=== PATIENT | female | born 1935 | race Caucasian/White ===

== ENCOUNTER 2019-04-04 15:29 | Inpatient (IN) | payer MEDICARE ==
[~2019-04-04 15:29] MED LIST: AMLO5TAB6 PO; ASPI81TA85 PO; ATOR1TAB21 PO; BREO1INH INH; DIPH25CA PO; FEBU40TA PO; FURO40TA2 PO; GLIP10TA18 PO; LISI-538 PO; MAG-400T7 PO; METF750T PO; METO1TAB32 PO; NON-325T5 PO; OXYC10TA12 PO; PANT20TA2 PO; PARO10TA3 PO; POTA1TAB14 PO; PROAAER10 INH; SYNT100T PO; TIOT18INH INH; TRAD5TAB PO
[2019-04-04 17:10] VITALS: BP 119/55
--- NOTE | 2019-04-04 17:29 | HPEPDOC ---
[facility] Medical History & Physical Date of Admission Apr 04, 2019 Date of Service: Apr 04, 2019 History and Physical CHIEF COMPLAINT: Abdominal pain HISTORY OF PRESENT ILLNESS: Patient is a 83-year-old female with past medical history of left atrophic kidney and nephrostomy tube to her right kidney, COPD, pulmonary hypertension, DM, hypertension, hypothyroidism is transferred from [facility] for DOMENICO. Of note, patient was admitted here in December for DOMENICO and complicated course shock requiring pressor support. She also had renal failure in October of this year requiring HD and received the R. nephrostomy tube at that time and was supposed to have it removed one week ago but did not due to being ill. She presented to [facility] this time with nausea/abdominal discomfort and reported URI symptoms along with loose stool last week. BUN/Cr noted to be at 58/3.65 with baseline Cr normal. Nephrostomy tube reportedly appeared to be functioning with urine still flowing, CT scan there did not note for any significant abnormalities. PAST MEDICAL HISTORY: Refer to [facility] PAST SURGICAL HISTORY: R. sided percutaneous nephrostomy tube placement Shoulder surgery SOCIAL HISTORY: Denies tobacco, alcohol or illicit drug use. FAMILY HISTORY: COPD and CAD ALLERGIES: Please see below. REVIEW OF SYSTEMS: 10 point review of system negative except as stated in [facility] HOME MEDICATIONS: Please see below. PHYSICAL EXAMINATION: General: No acute distress, Alert Eyes: Normal sclera, EOMI, MICHAEL HENT: Atraumatic, neck supple, moist mucous membranes Cardiovascular: Normal rate, normal rhythm. No murmurs appreciated. Pulmonary: Clear to auscultation b/l, no wheezing GI: Soft, nontender, nondistended Skin: Warm and dry Neuro: CN grossly intact. No focal deficits. Strengths equal b/l. Psych: oriented x 3 LABORATORY DATA: See below. MICROBIOLOGY: Please see below. ASSESSMENT AND PLAN: 1. DOMENICO - Suspecting pre-renal due to vomiting/loose stools as nephrostomy tube appeared to be functioning. - Patient has atropic L. kidney and nephrostomy tube to the R. - Has had DOMENICO several times this year and had HD in October. - Consult nephrology. - Gentle IVF support. If not improving, will have urology assess nephrostomy tube. 2. COPD - PRN nebs. - not in exacerbation. 3. HTN - Resume home meds. 4. Hypothyroidism - Resume Synthroid. 5. DM - Accuchecks. Insulin sliding scale coverage. - Hold home metformin. Takes 5 units Lantus qHS per son, will monitor BS. 6. AAA - 4cm on recent admission. - To follow with vascular outpatient. DVT ppx: HSQ and SCD Code status: Full code Home Medications Scheduled Acetaminophen (Acetaminophen) 325 Mg Tablet, 325 MG PO ONCE Amlodipine Besylate (Amlodipine Besylate) 5 Mg Tablet, 5 MG PO DAILY Aspirin (Aspir 81) 81 Mg Tablet.dr, 81 MG PO DAILY Atorvastatin Calcium (Atorvastatin Calcium) 20 Mg Tablet, 20 MG PO DAILY Febuxostat (Uloric) 40 Mg Tablet, 40 MG PO DAILY Fluticasone/Vilanterol (Breo Ellipta 100-25 Mcg INH) 1 Each Blst.w.dev, 1 PUFF INH DAILY Furosemide (Furosemide) 40 Mg Tablet, 40 MG PO DAILY Glipizide (Glipizide ER) 10 Mg Tab.er.24, 10 MG PO DAILY Levothyroxine Sodium (Synthroid) 100 Mcg Tablet, 100 MCG PO DAILY Linagliptin (Tradjenta) 5 Mg Tablet, 5 MG PO DAILY Lisinopril (Lisinopril) 20 Mg Tablet, 20 MG PO DAILY Magnesium Oxide (Magnesium Oxide) 400 Mg Tablet, 400 MG PO BID Metformin HCl (Metformin HCl ER) 750 Mg Tab.er.24h, 750 MG PO QPM TAKE WITH EVENING MEAL Metoprolol Succinate (Metoprolol Succinate) 25 Mg Tab.er.24h, 12.5 MG PO DAILY Pantoprazole Sodium (Pantoprazole Sodium) 20 Mg Tablet.dr, 20 MG PO BID Paroxetine HCl (Paroxetine) 10 Mg Tablet, 10 MG PO DAILY Potassium Chloride (Potassium Chloride) 20 Meq Tablet.er, 40 MEQ PO DAILY Tiotropium Edmond Monohydrate (Spiriva) 18 Mcg Cap.w.dev, 1 INHALATION INH DAILY Scheduled PRN Albuterol Sulfate (Proair Hfa) 8.5 Gm Hfa.aer.ad, 2 PUFF INH Q4-6 PRN for SHORTNESS OF BREATH Diphenhydramine HCl (Diphenhydramine HCl) 25 Mg Capsule, 25 MG PO Q4H PRN for ALLERGY SYMPTOMS Oxycodone HCl (Oxycodone HCl) 10 Mg Tablet, 10 MG PO Q6H PRN for PAIN Allergies Coded Allergies: Penicillins (Unverified Allergy, Unknown, 02/12/19) budesonide (Unverified Adverse Reaction, Intermediate, 02/12/19) NOTES AT PHARMACY STATE PATIENT HAD BAD SINUS REACTION AFTER USING formoterol (Unverified Adverse Reaction, Intermediate, 02/12/19) NOTES AT PHARMACY STATE PATIENT HAD BAD SINUS REACTION AFTER USING A-FIB/CHADSVASC A-FIB History Current/History of A-Fib/PAF?: No DIONISIO LYNN MD Apr 04, 2019 17:29
[2019-04-04] MEDS ORDERED: DEXTROSE 50% 50 ML SYRINGE IV PRN (17:45)
[2019-04-04] MEDS ORDERED: GLUCAGON FOR INJ 1 MG VIAL (J1610) SC PRN (17:45)
[2019-04-04] MEDS ORDERED: GLUCOSE 4 GM CHEW TABLET PO PRN (17:45)
[2019-04-04] MEDS: NS 1,000 ML IV SCH (18:00)
[2019-04-04] MEDS ORDERED: METO1TAB32 PO (18:09)
[2019-04-04] MEDS ORDERED: ALLO100T PO (18:09)
[2019-04-04 18:12] LABS: HEMATOCRIT 29.8 % (36.0-47.0); HEMOGLOBIN 10.1 g/dl (12.0-15.5); MEAN CORPUSCULAR HEMOGLOBIN 32.2 pg (27.0-33.0); MEAN CORPUSCULAR HGB CONC 33.9 g/dl (32.0-36.5); MEAN CORPUSCULAR VOLUME 94.9 fl (80.0-96.0); PLATELET COUNT, AUTOMATED 218 10^3/uL (150-450); RED BLOOD COUNT 3.14 10^6/uL (4.00-5.40); WHITE BLOOD COUNT 10.9 10^3/uL (4.0-10.0)
[2019-04-04] MEDS ORDERED: IPRATROPIUM 0.5MG/ALBUTEROL 2.5MG INH SOL UD 3ML (DUONEB)(J7620) NEB PRN (18:15)
[2019-04-04] MEDS ORDERED: ACETAMINOPHEN TAB 650MG DOSE (2X325MG) PO PRN (18:45)
[2019-04-04] MEDS ORDERED: ALBUTEROL 90 MCG/ACT 8GM HFA INHALER INH PRN (18:45)
[2019-04-04 18:50] LABS: ALBUMIN 2.8 GM/DL (3.2-5.2); BILIRUBIN,TOTAL 0.3 MG/DL (0.2-1.0); CALCIUM LEVEL 7.8 MG/DL (8.8-10.2); CREATININE FOR GFR 3.09 MG/DL (0.55-1.30); GLOMERULAR FILTRATION RATE 15.4 (>32); POTASSIUM SERUM 3.5 MEQ/L (3.5-5.1); TOTAL PROTEIN 6.2 GM/DL (6.4-8.2)
[2019-04-04] MEDS ORDERED: NORCO, ANEXSIA 5/325MG TABLET (HYDROcodone/ACETAMINOPHEN) PO ONE (20:15)
[2019-04-04 20:24] LABS: HEMOGLOBIN A1c 6.2 %
[2019-04-04] MEDS: HumaLOG INSULIN (NovoLOG) PER UNIT SC SCH (21:00)
[2019-04-04] MEDS: HEPARIN SOD (PORCINE) 5000 UNITS/ML VIAL SC SCH (21:51)
[2019-04-04] MEDS: PANTOPRAZOLE 20 MG TAB PO SCH (21:52)
[2019-04-04] MEDS: MAGNESIUM OXIDE 400 MG TAB (MAG-OX) PO SCH (21:52)
[2019-04-04 22:00] VITALS: BP 124/74
[2019-04-05 02:00] VITALS: BP 135/68
[2019-04-05 05:56] LABS: HEMATOCRIT 29.7 % (36.0-47.0); HEMOGLOBIN 9.9 g/dl (12.0-15.5); MEAN CORPUSCULAR HEMOGLOBIN 30.7 pg (27.0-33.0); MEAN CORPUSCULAR HGB CONC 33.3 g/dl (32.0-36.5); PLATELET COUNT, AUTOMATED 256 10^3/uL (150-450); RED BLOOD COUNT 3.23 10^6/uL (4.00-5.40); WHITE BLOOD COUNT 8.8 10^3/uL (4.0-10.0)
[2019-04-05 06:00] VITALS: BP 122/62
[2019-04-05 06:13] LABS: CREATININE FOR GFR 2.43 MG/DL (0.55-1.30); GLOMERULAR FILTRATION RATE 20.3 (>32); POTASSIUM SERUM 3.8 MEQ/L (3.5-5.1)
[2019-04-05] MEDS: HEPARIN SOD (PORCINE) 5000 UNITS/ML VIAL SC SCH ×3 (06:22→21:11)
[2019-04-05] MEDS: NORCO, ANEXSIA 5/325MG TABLET (HYDROcodone/ACETAMINOPHEN) PO PRN ×3 (06:23→23:52)
[2019-04-05] MEDS: LEVOTHYROXINE 100MCG TABLET (0.1MG) PO SCH (06:23)
[2019-04-05] MEDS: HumaLOG INSULIN (NovoLOG) PER UNIT SC SCH ×4 (07:30→21:00)
[2019-04-05] MEDS: NS 1,000 ML IV SCH ×2 (07:41→19:47)
[2019-04-05] MEDS: TIOTROPIUM INHALER/CAPSULE (SPIRIVA) INH SCH (07:47)
[2019-04-05] MEDS: ALLOPURINOL 100 MG TAB PO SCH (08:58)
[2019-04-05] MEDS: ATORVASTATIN 20 MG TAB PO SCH (08:59)
[2019-04-05] MEDS: PANTOPRAZOLE 20 MG TAB PO SCH ×2 (08:59→21:11)
[2019-04-05] MEDS: amLODIPine 5 MG TAB PO SCH (08:59)
[2019-04-05] MEDS: ASPIRIN 81 MG ENTERIC TAB PO SCH (08:59)
[2019-04-05] MEDS: METOPROLOL SUCC *XL* 25MG TAB (TopROL *XL*) PO SCH (08:59)
[2019-04-05] MEDS: MAGNESIUM OXIDE 400 MG TAB (MAG-OX) PO SCH ×2 (08:59→21:11)
[2019-04-05 10:00] VITALS: BP 135/60
[2019-04-05] MEDS: MORPHINE 4 MG/ML 1ML VIAL/SYRINGE (J2270) IV PRN ×2 (10:09→13:36)
--- NOTE | 2019-04-05 13:49 | CR ---
DATE OF CONSULTATION: 04/05/2019 REQUESTING PHYSICIAN: Jason Block MD CONSULTING PHYSICIAN: Joseline Pena MD REASON FOR CONSULTATION: Management of acute kidney injury. CHIEF COMPLAINT: The patient presented to the hospital yesterday with abdominal pain. HISTORY OF PRESENT ILLNESS Bindu Pichardo is an 83-year-old female with past medical history of chronic kidney disease, stage II with a baseline creatinine of 0.9. She has atrophic left kidney and has a percutaneous nephrostomy tube in the right kidney. Multiple other comorbidities as mentioned below. She was transferred yesterday from [facility] because of acute renal failure. The patient presented at [facility] with nausea, abdominal pain, upper respiratory symptoms. Further evaluation in the ER showed that she had a creatinine of 3.6. Since she has only one functional kidney with a nephrostomy tube and a history of acute renal failure requiring hemodialysis back in October 2018, the patient was transferred from [place] to [facility] for further management of the acute renal failure. She was admitted under the hospitalist service yesterday. The patient was discussed by myself with the admitting physician. The decision was made to gently hydrate the patient. I saw and evaluated the patient today morning at the bedside. She is feeling better today. She was able to eat her breakfast and she reports that her abdominal pain is improving. Her renal function is also improving with the IV fluid hydration. PAST MEDICAL HISTORY Past medical history of her chronic kidney disease stage II, history of renal failure requiring dialysis six month ago in October 2018; solitary functioning right kidney with percutaneous nephrostomy, history of atrophic left kidney, chronic obstructive pulmonary disease (COPD), primary hypertension, diabetes mellitus type 2, hypertension, hypothyroidism. PAST SURGICAL HISTORY Status post right-sided percutaneous nephrostomy, history of shoulder surgery. ALLERGIES: She is allergic to PENICILLIN, LATEX, PEANUT OIL, RED DYE, BUDESONIDE. FAMILY HISTORY: No significant family history of end-stage renal disease requiring hemodialysis. SOCIAL HISTORY: There is no history smoking, illicit drug abuse, alcohol abuse. REVIEW OF SYSTEMS Constitutional: She denies any fevers or chills. Eyes: She denies any blurry vision, double vision. ENT: She reports that she is very hard of hearing. Cardiovascular: She denies any chest pain or palpitation. Respiratory: She denies any shortness of breath. GI: She did report abdominal pain when she presented to the hospital. She reports pain is getting better. Genitourinary: She denies any dysuria or hematuria. She has history of right-sided nephrostomy. Musculoskeletal: She denies any muscle weakness. Skin: She denies any rashes or ulcers. 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 Hematology/Oncological: She denies any easy bleeding or bruising. All other review of systems is negative. PHYSICAL EXAMINATION General: The patient is awake, alert, oriented times three, sitting up in the bed. Vital signs: Temperature is 97.4 degrees Fahrenheit, blood pressure 135/60, pulse is 95, respiratory rate of 20, saturating 96% on room air. Intake and output: Urine output recorded 350 mL yesterday, 455 mL so far today since overnight. Head and neck examination: Extraocular muscles intact. Pupils equally round and reactive to light. Mucous membranes are moist. Neck is supple. There is no JVD. Cardiovascular: S1, S2, regular rate. No edema of the bilateral lower extremities. Respiratory: Chest is clear to auscultation bilaterally. Bilateral equal air entry. No rales or rhonchi. Abdomen: Soft. Positive bowel sounds. Nontender. No organomegaly. Musculoskeletal: No clubbing or cyanosis. Pulses are 2+. 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 Power is 5/5 in all extremities. She is otherwise very hard of hearing. LAB REVIEW: CBC showed a WBC of 8.8, hemoglobin 9.9, platelets are 256. BMP on arrival showed sodium 130, potassium 3.5, chloride 101, bicarb 17, BUN 58, creatinine is 3, calcium 7.8, albumin 2.8. Repeat BMP done today morning showed sodium 135, potassium 3.8, chloride 107, bicarb 16, BUN 52, creatinine is 2.4, calcium is 8. HOME MEDICATIONS: The patient was taking Tylenol as needed (p.r.n.) at home. She was on allopurinol 100 mg daily, amlodipine 5 mg daily, aspirin 81 mg daily, Lipitor 20 mg daily, Breo Ellipta one puff once a day, Lasix 40 mg daily, glipizide 10 mg daily, levothyroxine 100 mcg by mouth daily, Tradjenta 5 mg by mouth daily, lisinopril 20 mg daily, magnesium oxide 400 mg by mouth twice a day, metformin 750 mg by mouth daily, metoprolol 25 mg daily, Protonix 20 mg by mouth twice a day, paroxetine 10 mg daily and potassium chloride 40 mEq by mouth twice a day, along with Spiriva daily. CURRENT INPATIENT MEDICATIONS: The patient's medications in the hospital include normal saline 75 mL an hour, Harper as needed, Tylenol as needed, albuterol nebulizations, allopurinol 100 mg daily, amlodipine 5 mg daily, aspirin 81 mg daily, Lipitor 20 mg daily, heparin subcutaneous, levothyroxine 100 mcg by mouth daily, magnesium oxide 400 mg by mouth twice a day, metoprolol XL 25 mg daily, Protonix 20 mg by mouth twice a day, Spiriva inhalation and morphine as needed. ASSESSMENT 83-year-old female with near-normal renal function. Baseline creatinine is 0.9, solitary functioning right kidney with percutaneous nephrostomy admitted this time with acute kidney injury superimposed on chronic kidney disease stage II and abdominal pain. PLAN 1. Acute renal failure superimposed on chronic kidney disease stage II. The patient came in with dehydration and volume depleted. She was also taking Lasix, lisinopril and metformin at home. She was started on gentle IV fluid hydration. Above-mentioned medications were stopped. Renal function is improving, creatinine is down to 2.4. Continue gentle IV fluid hydration for the next 24 hours as well. 2. History of hypertension. The patient is currently on home medications including amlodipine and metoprolol. Blood pressures are within the acceptable range. 3. Right-sided percutaneous nephrostomy status. Nephrostomy tube is working well. Urine in the bag is clear. 4. Diabetes mellitus type 2. Avoid use of metformin, acute renal failure. Okay to use a sulfonylureas or insulin sliding scale. 5. History of abdominal aortic aneurysm. Avoid use of hydralazine for blood pressure. Try to maintain blood pressure less than 140 systolic. Rest of the management is as per primary team. 6. Chronic gout secondary to chronic kidney disease. Continue current dose of allopurinol 100 mg by mouth daily. Thank you for involving me in the care of this patient. I shall be happy to follow the patient along with you tomorrow morning.
[2019-04-05 14:00] VITALS: BP 140/63
--- NOTE | 2019-04-05 16:13 | IPNPDOC ---
Date Seen The patient was seen on 04/05/19. Progress Note SUBJECTIVE: Patient reports pain this morning at multiple sites including her abdomen, R. hip, and back. Stated that she fell and had a hairline fracture and it has been hurting for the past 2 years however. Denies any other complaints. States that she has not had a bowel movement. Cr improving with IVF resuscitation. OBJECTIVE PHYSICAL EXAMINATION: VITAL SIGNS: Please see below. General: No acute distress, Alert, hard of hearing and some dementia Eyes: Normal sclera, EOMI, MICHAEL HENT: Atraumatic, neck supple, moist mucous membranes Cardiovascular: Normal rate, normal rhythm. No murmurs appreciated. Pulmonary: Clear to auscultation b/l, no wheezing GI: Soft, nondistended, generalized tenderness Skin: Warm and dry Neuro: CN grossly intact. No focal deficits. Strengths equal b/l. Psych: Has some dementia and does not answer all questions appropriately LABORATORY DATA, IMAGING STUDIES, MICROBIOLOGY: Please see below. ASSESSMENT AND PLAN: 1. DOMENICO on CKD II - Suspecting pre-renal due to vomiting/loose stools as nephrostomy tube appeared to be functioning. - Patient has atropic L. kidney and nephrostomy tube to the R. - Has had DOMENICO several times this year and had HD in October. - Nephrology following. - Gentle IVF support. 2. COPD - PRN nebs. - not in exacerbation. 3. HTN - Resume home meds hold nephrotoxic meds. 4. Hypothyroidism - Resume Synthroid. 5. DM - Accuchecks. Insulin sliding scale coverage. - Hold home metformin. Takes 5 units Lantus qHS per son, will monitor BS. 6. AAA - 4cm on recent admission. - To follow with vascular outpatient. DVT ppx: HSQ and SCD Code status: Full code VS, I&O, 24H, Fishbone Vital Signs/I&O Vital Signs Date Time Temp Pulse Resp B/P (MAP) Pulse Ox O2 Delivery O2 Flow Rate FiO2 04/05/19 14:00 96.5 95 20 140/63 (88) 98 I&O- Last 24 Hours up to 6 AM 04/05/19 06:00 Intake Total 1025 ml Output Total 805 ml Balance 220 ml Laboratory Data 24H LABS Laboratory Tests 2 04/04/19 18:01: Nucleated Red Blood Cells % (auto) 0.0, Anion Gap 12, Glomerular Filtration Rate 15.4L, Blood Urea Nitrogen 58H, Creatinine 3.09H, Sodium Level 130L, Potassium Level 3.5, Chloride Level 101, Carbon Dioxide Level 17L, Calcium Level 7.8L, Aspartate Amino Transf (AST/SGOT) 14, Alanine Aminotransferase (ALT/SGPT) 12, Alkaline Phosphatase 105, Total Bilirubin 0.3, Total Protein 6.2L, Albumin 2.8L, Albumin/Globulin Ratio 0.82L 04/04/19 18:02: Lactic Acid Level 0.6 04/04/19 19:11: Bedside Glucose (Misc Panel) 40L 04/04/19 19:36: Bedside Glucose (Misc Panel) 86 04/04/19 19:58: Estimated Mean Plasma Glucose 131H, Hemoglobin A1c 6.2 04/04/19 20:54: Bedside Glucose (Misc Panel) 109 04/05/19 05:28: Nucleated Red Blood Cells % (auto) 0.0, Anion Gap 12, Glomerular Filtration Rate 20.3L, Blood Urea Nitrogen 52H, Creatinine 2.43H, Sodium Level 135L, Potassium Level 3.8, Chloride Level 107, Carbon Dioxide Level 16L, Calcium Level 8.0L 04/05/19 11:34: Bedside Glucose (Misc Panel) 159H CBC/BMP Laboratory Tests 04/04/19 18:01 Red Blood Count 3.14 L, Mean Corpuscular Volume 94.9, Mean Corpuscular Hemog lobin 32.2, Mean Corpuscular Hemoglobin Concent 33.9, Red Cell Distribution Width 16.3 H, Calcium Level 7.8 L, Aspartate Amino Transf (AST/SGOT) 14, Alanine Aminotransferase (ALT/SGPT) 12, Alkaline Phosphatase 105, Total Bilirubin 0.3, Total Protein 6.2 L, Albumin 2.8 L 04/05/19 05:28 Red Blood Count 3.23 L, Mean Corpuscular Volume 92.0, Mean Corpuscular Hemoglobin 30.7, Mean Corpuscular Hemoglobin Concent 33.3, Red Cell Distribution Width 16.0 H, Calcium Level 8.0 L DIONISIO LYNN MD Apr 05, 2019 16:13
[2019-04-05 18:00] VITALS: BP 148/63
[2019-04-05 22:00] VITALS: BP 158/67
[2019-04-06 06:00] VITALS: BP 154/98
[2019-04-06] MEDS: LEVOTHYROXINE 100MCG TABLET (0.1MG) PO SCH (06:29)
[2019-04-06] MEDS: HEPARIN SOD (PORCINE) 5000 UNITS/ML VIAL SC SCH ×3 (06:29→21:03)
[2019-04-06 06:44] LABS: HEMATOCRIT 26.9 % (36.0-47.0); MEAN CORPUSCULAR HEMOGLOBIN 31.1 pg (27.0-33.0); MEAN CORPUSCULAR HGB CONC 33.5 g/dl (32.0-36.5); MEAN CORPUSCULAR VOLUME 93.1 fl (80.0-96.0); PLATELET COUNT, AUTOMATED 224 10^3/uL (150-450); RED BLOOD COUNT 2.89 10^6/uL (4.00-5.40); WHITE BLOOD COUNT 5.3 10^3/uL (4.0-10.0)
[2019-04-06 07:00] LABS: CALCIUM LEVEL 7.9 MG/DL (8.8-10.2); CREATININE FOR GFR 1.21 MG/DL (0.55-1.30); GLOMERULAR FILTRATION RATE 45.5 (>32); POTASSIUM SERUM 3.7 MEQ/L (3.5-5.1)
[2019-04-06] MEDS: TIOTROPIUM INHALER/CAPSULE (SPIRIVA) INH SCH (08:17)
[2019-04-06] MEDS: ATORVASTATIN 20 MG TAB PO SCH (08:33)
[2019-04-06] MEDS: PANTOPRAZOLE 20 MG TAB PO SCH ×2 (08:33→20:14)
[2019-04-06] MEDS: MAGNESIUM OXIDE 400 MG TAB (MAG-OX) PO SCH ×2 (08:33→20:14)
[2019-04-06] MEDS: NORCO, ANEXSIA 5/325MG TABLET (HYDROcodone/ACETAMINOPHEN) PO PRN ×2 (08:33→16:34)
[2019-04-06] MEDS: amLODIPine 5 MG TAB PO SCH (08:34)
[2019-04-06] MEDS: ALLOPURINOL 100 MG TAB PO SCH (08:34)
[2019-04-06] MEDS: METOPROLOL SUCC *XL* 25MG TAB (TopROL *XL*) PO SCH (08:34)
[2019-04-06] MEDS: NS 1,000 ML IV SCH ×2 (08:34→20:15)
[2019-04-06] MEDS: HumaLOG INSULIN (NovoLOG) PER UNIT SC SCH ×4 (08:35→20:51)
[2019-04-06] MEDS: ASPIRIN 81 MG ENTERIC TAB PO SCH (08:36)
[2019-04-06] MEDS: MOM 30ML SUSPENSION UDC PO SCH ×2 (09:00→20:15)
[2019-04-06 10:00] VITALS: BP 140/62
--- NOTE | 2019-04-06 12:18 | IPNPDOC ---
Date Seen The patient was seen on 04/06/19. Progress Note SUBJECTIVE: Patient seem comfortable this morning and is more responsive. States that her pains are better. Although has not had a bowel movement yet. Cr continues to trend down. OBJECTIVE PHYSICAL EXAMINATION: VITAL SIGNS: Please see below. General: No acute distress, Alert, hard of hearing and some dementia Eyes: Normal sclera, EOMI, MICHAEL HENT: Atraumatic, neck supple, moist mucous membranes Cardiovascular: Normal rate, normal rhythm. No murmurs appreciated. Pulmonary: Clear to auscultation b/l, no wheezing GI: Soft, nondistended, generalized tenderness Skin: Warm and dry Neuro: CN grossly intact. No focal deficits. Strengths equal b/l. Psych: Has some dementia and does not answer all questions appropriately LABORATORY DATA, IMAGING STUDIES, MICROBIOLOGY: Please see below. ASSESSMENT AND PLAN: 1. DOMENICO on CKD II - Improving. - Suspecting pre-renal due to vomiting/loose stools as nephrostomy tube appeared to be functioning. - Patient has atropic L. kidney and nephrostomy tube to the R. - Has had DOMENICO several times this year and had HD in October. - Nephrology following. 2. COPD - PRN nebs. - not in exacerbation. 3. HTN - Resume home meds hold nephrotoxic meds. 4. Hypothyroidism - Resume Synthroid. 5. DM - Accuchecks. Insulin sliding scale coverage. - Hold home metformin. Takes 5 units Lantus qHS per son, will monitor BS. 6. AAA - 4cm on recent admission. - To follow with vascular outpatient. 7. Diffuse pain/abdominal pain - suspect constipation. CT with no significant findings at [facility]. - Has not had a bowel movement in 6 days. Start on bowel regimen. DVT ppx: HSQ and SCD Code status: Full code VS, I&O, 24H, Fishbone Vital Signs/I&O Vital Signs Date Time Temp Pulse Resp B/P (MAP) Pulse Ox O2 Delivery O2 Flow Rate FiO2 04/06/19 10:00 97.2 98 20 140/62 (88) 99 I&O- Last 24 Hours up to 6 AM 04/06/19 06:00 Intake Total 2309 ml Output Total 800 ml Balance 1509 ml Laboratory Data 24H LABS Laboratory Tests 2 04/05/19 17:54: Bedside Glucose (Misc Panel) 101 04/05/19 20:59: Bedside Glucose (Misc Panel) 119H 04/06/19 05:53: Nucleated Red Blood Cells % (auto) 0.0, Anion Gap 8, Glomerular Filtration Rate 45.5, Blood Urea Nitrogen 34H, Creatinine 1.21#, Sodium Level 140, Potassium Level 3.7, Chloride Level 114H, Carbon Dioxide Level 18L, Calcium Level 7.9L 04/06/19 11:44: Bedside Glucose (Misc Panel) 165H CBC/BMP Laboratory Tests 04/06/19 05:53 Red Blood Count 2.89 L, Mean Corpuscular Volume 93.1, Mean Corpuscular Hemoglobin 31.1, Mean Corpuscular Hemoglobin Concent 33.5, Red Cell Distribution Width 15.9 H, Calcium Level 7.9 L DIONISIO LYNN MD Apr 06, 2019 12:18
[2019-04-06] MEDS: DOCUSATE SODIUM 100 MG CAP PO SCH ×2 (13:00→20:14)
[2019-04-06 14:00] VITALS: BP 120/50
[2019-04-06 18:00] VITALS: BP 157/74
[2019-04-06 19:36] LABS: PERCENT SATURATION 34.8 % (13.2-45.0)
[2019-04-06 22:00] VITALS: BP 116/71
[2019-04-07] MEDS: NORCO, ANEXSIA 5/325MG TABLET (HYDROcodone/ACETAMINOPHEN) PO PRN ×2 (01:01→09:03)
[2019-04-07 02:00] VITALS: BP 127/77
[2019-04-07] MEDS: HEPARIN SOD (PORCINE) 5000 UNITS/ML VIAL SC SCH (05:58)
[2019-04-07] MEDS: LEVOTHYROXINE 100MCG TABLET (0.1MG) PO SCH (05:58)
[2019-04-07 06:00] VITALS: BP 137/86
[2019-04-07 06:35] LABS: HEMATOCRIT 27.3 % (36.0-47.0); HEMOGLOBIN 9.3 g/dl (12.0-15.5); MEAN CORPUSCULAR HEMOGLOBIN 32.3 pg (27.0-33.0); MEAN CORPUSCULAR HGB CONC 34.1 g/dl (32.0-36.5); MEAN CORPUSCULAR VOLUME 94.8 fl (80.0-96.0); PLATELET COUNT, AUTOMATED 220 10^3/uL (150-450); RED BLOOD COUNT 2.88 10^6/uL (4.00-5.40); WHITE BLOOD COUNT 5.1 10^3/uL (4.0-10.0)
[2019-04-07 07:07] LABS: BLOOD UREA NITROGEN 17 MG/DL (7-18); CARBON DIOXIDE LEVEL 19 MEQ/L (21-32); CHLORIDE LEVEL 115 MEQ/L (98-107); CREATININE FOR GFR 0.87 MG/DL (0.55-1.30); GLOMERULAR FILTRATION RATE > 60.0 (>32); GLUCOSE, FASTING 96 MG/DL (70-100); POTASSIUM SERUM 3.6 MEQ/L (3.5-5.1); SODIUM LEVEL 142 MEQ/L (136-145)
[2019-04-07] MEDS: HumaLOG INSULIN (NovoLOG) PER UNIT SC SCH ×2 (07:27→11:48)
[2019-04-07] MEDS: TIOTROPIUM INHALER/CAPSULE (SPIRIVA) INH SCH (08:15)
[2019-04-07] MEDS: NS 1,000 ML IV SCH (09:01)
[2019-04-07] MEDS: MOM 30ML SUSPENSION UDC PO SCH (09:02)
[2019-04-07] MEDS: ATORVASTATIN 20 MG TAB PO SCH (09:02)
[2019-04-07] MEDS: DOCUSATE SODIUM 100 MG CAP PO SCH (09:02)
[2019-04-07] MEDS: PANTOPRAZOLE 20 MG TAB PO SCH (09:02)
[2019-04-07] MEDS: ALLOPURINOL 100 MG TAB PO SCH (09:02)
[2019-04-07] MEDS: MAGNESIUM OXIDE 400 MG TAB (MAG-OX) PO SCH (09:02)
[2019-04-07] MEDS: ASPIRIN 81 MG ENTERIC TAB PO SCH (09:02)
[2019-04-07 09:07] VITALS: BP 124/70
[2019-04-07] MEDS: METOPROLOL SUCC *XL* 25MG TAB (TopROL *XL*) PO SCH (09:07)
[2019-04-07] MEDS: amLODIPine 5 MG TAB PO SCH (09:07)
[2019-04-07 10:00] VITALS: BP 166/77
--- NOTE | 2019-04-07 11:57 | DS.PDOC ---
Discharge Summary General Date of Admission Apr 04, 2019 at 17:15 Date of Discharge 04/07/19 Discharge Summary PROCEDURES PERFORMED DURING STAY: [None]. ADMITTING DIAGNOSES: 1. DOMENICO 2. COPD 3. HTN 4. DM 5. AAA 6. Abdominal pain DISCHARGE DIAGNOSES: 1. DOMENICO 2. COPD 3. HTN 4. DM 5. AAA 6. Abdominal pain COMPLICATIONS/CHIEF COMPLAINT: Acute Kidney Injury. HISTORY OF PRESENT ILLNESS: "Patient is a 83-year-old female with past medical history of left atrophic kidney and nephrostomy tube to her right kidney, COPD, pulmonary hypertension, DM, hypertension, hypothyroidism is transferred from [facility] for DOMENICO. Of note, patient was admitted here in December for DOMENICO and complicated course shock requiring pressor support. She also had renal failure in October of this year requiring HD and received the R. nephrostomy tube at that time and was supposed to have it removed one week ago but did not due to being ill. She presented to [facility] this time with nausea/abdominal discomfort and reported U RI symptoms along with loose stool last week. BUN/Cr noted to be at 58/3.65 with baseline Cr normal. Nephrostomy tube reportedly appeared to be functioning with urine still flowing, CT scan there did not note for any significant abnormalities. " HOSPITAL COURSE: Patient was given gentle IVF with quick resolution of DOMENICO and kidney functions had returned to normal. Also noted to not have bowel movements for several days complaining of severe abdominal pain. Was started on stool softener and had a small bowel movement yesterday, today denies any complaints. Stated that she feels well and requested to go home, very tearful saying she cannot rest and her HR is high because she is in distress being in the hospital. HR had now return to normal with no fever or leukocytosis, suggesting any evidence of infection. Will discharge patient to f/u with PMD. Recommend continuing with stool softener. DISCHARGE MEDICATIONS: Please see below. ALLERGIES: Please see below. PHYSICAL EXAMINATION ON DISCHARGE: VITAL SIGNS: Please see below. General: No acute distress, Alert Eyes: Normal sclera, EOMI, MICHAEL HENT: Atraumatic, neck supple, moist mucous membranes Cardiovascular: Normal rate, normal rhythm. Pulmonary: Clear to auscultation b/l, no wheezing GI: Soft, nontender, nondistended Skin: Warm and dry Neuro: CN grossly intact. No focal deficits. Strengths equal b/l. LABORATORY DATA: Please see below. IMAGING: CXR- report pending ACTIVITY: [As tolerated]. DIET: 2G sodium diet DISCHARGE PLAN: c/w stool softener colace f/u PMD within 1 week DISPOSITION: Home. DISCHARGE INSTRUCTIONS: c/w stool softener colace f/u PMD within 1 week ITEMS TO FOLLOWUP ON ON OUTPATIENT: 1. CXR final report, no significant infiltrate per my read. (no evidence of PNA or infection, would not need to have any treatment) DISCHARGE CONDITION: [Stable]. TIME SPENT ON DISCHARGE: 33 minutes. Vital Signs/I&Os Vital Signs Date Time Temp Pulse Resp B/P (MAP) Pulse Ox O2 Delivery O2 Flow Rate FiO2 04/07/19 10:00 97.6 99 18 166/77 (106) 97 I&O- Last 24 Hours up to 6 AM 04/07/19 06:00 Intake Total 1641 ml Output Total 1500 ml Balance 141 ml Laboratory Data Labs 24H Laboratory Tests 2 04/06/19 16:46: Bedside Glucose (Misc Panel) 128H 04/06/19 20:39: Bedside Glucose (Misc Panel) 113H 04/07/19 06:08: Nucleated Red Blood Cells % (auto) 0.4H, Anion Gap 8, Glomerular Filtration Rate > 60.0, Blood Urea Nitrogen 17, Creatinine 0.87, Sodium Level 142, Potassium Level 3.6, Chloride Level 115H, Carbon Dioxide Level 19L, Calcium Level 8.0L 04/07/19 11:39: Bedside Glucose (Misc Panel) 170H CBC/BMP Laboratory Tests 04/07/19 06:08 Red Blood Count 2.88 L, Mean Corpuscular Volume 94.8, Mean Corpuscular Hemoglobin 32.3, Mean Corpuscular Hemoglobin Concent 34.1, Red Cell Distribution Width 15.9 H, Calcium Level 8.0 L FSBS Laboratory Tests Test 04/06/19 16:46 04/06/19 20:39 04/07/19 11:39 Range/Units Bedside Glucose (Misc Panel) 128 113 170 83-110 MG/DL Discharge Medications Scheduled Allopurinol (Allopurinol) 100 Mg Tablet, 100 MG PO DAILY, (Reported) Amlodipine Besylate (Amlodipine Besylate) 5 Mg Tablet, 5 MG PO DAILY, (Reported) Aspirin (Aspir 81) 81 Mg Tablet.dr, 81 MG PO DAILY, (Reported) Atorvastatin Calcium (Atorvastatin Calcium) 20 Mg Tablet, 20 MG PO DAILY, (Reported) Fluticasone/Vilanterol (Breo Ellipta 100-25 Mcg INH) 1 Each Blst.w.dev, 1 PUFF INH DAILY, (Reported) Furosemide (Furosemide) 40 Mg Tablet, 40 MG PO DAILY, (Reported) Glipizide (Glipizide ER) 10 Mg Tab.er.24, 10 MG PO DAILY, (Reported) Levothyroxine Sodium (Synthroid) 100 Mcg Tablet, 100 MCG PO DAILY, (Reported) Linagliptin (Tradjenta) 5 Mg Tablet, 5 MG PO DAILY, (Reported) Lisinopril (Lisinopril) 20 Mg Tablet, 20 MG PO DAILY, (Reported) Magnesium Oxide (Magnesium Oxide) 400 Mg Tablet, 400 MG PO BID, (Reported) Metformin HCl (Metformin HCl ER) 750 Mg Tab.er.24h, 750 MG PO QPM, (Reported) TAKE WITH EVENING MEAL Metoprolol Succinate (Metoprolol Succinate) 25 Mg Tab.er.24h, 25 MG PO DAILY, (Reported) Pantoprazole Sodium (Pantoprazole Sodium) 20 Mg Tablet.dr, 20 MG PO BID, (Reported) Paroxetine HCl (Paroxetine) 10 Mg Tablet, 10 MG PO DAILY, (Reported) Potassium Chloride (Potassium Chloride) 20 Meq Tablet.er, 40 MEQ PO BID, (R eported) LAST FILLED SEP 2018, UNABLE TO VERIFY IF PT IS STILL TAKING Tiotropium [place] Monohydrate (Spiriva) 18 Mcg Cap.w.dev, 1 INHALATION INH DAILY, (Reported) Scheduled PRN Acetaminophen (Acetaminophen) 325 Mg Tablet, 650 MG PO Q6H PRN for PAIN, (Reported) Albuterol Sulfate (Proair Hfa) 8.5 Gm Hfa.aer.ad, 2 PUFF INH Q4-6 PRN for SHORTNESS OF BREATH, (Reported) Diphenhydramine HCl (Diphenhydramine HCl) 25 Mg Capsule, 25 MG PO Q4H PRN for ALLERGY SYMPTOMS, (Reported) Allergies Coded Allergies: Penicillins (Unverified Allergy, Unknown, 02/12/19) latex (Verified Allergy, Unknown, 04/04/19) peanut oil (Verified Allergy, Unknown, 04/04/19) red dye (Verified Allergy, Unknown, 04/04/19) budesonide (Unverified Adverse Reaction, Intermediate, 02/12/19) NOTES AT PHARMACY STATE PATIENT HAD BAD SINUS REACTION AFTER USING formoterol (Unverified Adverse Reaction, Intermediate, 02/12/19) NOTES AT PHARMACY STATE PATIENT HAD BAD SINUS REACTION AFTER USING DIONISIO LYNN MD Apr 07, 2019 11:57
[2019-04-07] MEDS ORDERED: COLA100C5 PO (12:04)
--- NOTE | 2019-04-07 14:03 | IPN ---
DATE: 04/06/2019 Mrs. Pichardo is seen this morning on her bedside. She is sitting at the edge of bed eating her lunch. She denies any nausea, vomiting, dyspnea or chest pain. PHYSICAL EXAMINATION: Temperature 96 degrees Fahrenheit, heart rate 100 per minute and respiratory rate 16 per minute. Blood pressure 120/50 mmHg and oxygen saturation 98%. Head is atraumatic. Neck is supple and without JVD or thyroid enlargement. Heart: Sounds are regular and tachycardiac. Lungs: Clear to auscultation. Abdomen: Soft and nontender. Bowel sounds are normal. Extremities have no cyanosis or clubbing. Neurologically she is awake and without a focal deficit. Today's labs show WBC count 5.3, hemoglobin 9.0 and hematocrit 26.9. Platelets 224. Sodium 140, potassium 3.7, CO2 18, BUN 34 and creatinine 1.21. PROBLEMS: 1. Acute renal failure. Kidney function is improving nicely and the patient has no uremic symptoms. I would suggest to continue monitoring her renal function on a daily basis. 2. Metabolic acidosis. Acidosis is improving gradually as her kidney function is improving. Chemistry should be checked again tomorrow morning. 3. Anemia. Her anemia is gradually worsening. I will check her iron studies and continue to monitor. There is no emergent indication for a transfusion. 4. Right-sided percutaneous nephrostomy in a solitary kidney. The patient has a nephrostomy in her right side and it is draining clear urine. Continue to monitor closely. All in all the patient is improving from a renal standpoint and we will monitor her and follow her for one more day.
--- NOTE | 2019-04-07 14:04 | REP ---
Clinical: Chest pain. Dyspnea. Comparison: 01/17/2019. Findings: Mediastinum and cardiac silhouette are within normal limits and stable. Lung andrea demonstrate chronic changes including linear scarring at the bilateral bases. No focal consolidation, effusion, or pneumothorax. Skeletal structures demonstrate stable osteopenia and degenerative changes. Impression: Chronic stable changes. No acute cardiopulmonary process appreciated. Electronically Signed by Buzz Horne MD 04/07/2019 09:58 A
--- NOTE | 2019-04-07 15:12 | IPN ---
DATE: 04/07/2019 Mrs. Pichardo is seen this morning on her bedside. She is laying in her bed without any acute distress. She is receiving intravenous (IV) fluid at 75 per hour. She was admitted with acute renal failure and kidney function has been improving. Her oral intake is now adequate and she denies any nausea, vomiting, abdominal pain or diarrhea. She has no dyspnea or chest pain. PHYSICAL EXAMINATION: Temperature 97.6 degrees Fahrenheit, heart rate 99 per minute and respiratory rate 18 per minute. Blood pressure 166/77 mmHg and oxygen saturation 97% on room air. Head is atraumatic. Neck is supple and without jugular venous distention (JVD) or thyroid enlargement. Heart sounds are regular. Lungs with slightly diminished breath sounds. Abdomen soft and nontender and bowel sounds are normal. Extremities have no cyanosis or clubbing. Today's labs show WBC count 5.1, hemoglobin 9.3 and hematocrit 27.3. Sodium 142, potassium 3.6, CO2 19, BUN 17 and creatinine 0.87. Calcium level is 8.0. PROBLEMS: 1. Acute renal failure. Kidney function has improved back to baseline. I am going to stop her IV fluid, as her oral intake is now adequate. 2. Metabolic acidosis. Acidosis has also improved significantly, though not completely normal as yet. We anticipate that her acidosis will correct completely over next 24-48 hours. She is not receiving any sodium bicarbonate supplement. 3. Anemia. Her anemia is stable and iron studies are borderline. I would recommend that she should supplement in the long-term. DISPOSITION: From a renal standpoint, patient is doing well. I am signing off her case. Her IV fluid is being stopped.
== END 2019-04-07 13:43 | disposition home health service (06) | DRG 683 ==
LOC: M MSPAV 17:15
PROVIDERS: ADMIT Student in an Organized Health Care Education/Training Program; ATTEND Student in an Organized Health Care Education/Training Program
DX: N17.9 Acute kidney failure, unspecified (principal); E87.2 Acidosis; N26.1 Atrophy of kidney (terminal); J44.9 Chronic obstructive pulmonary disease, unspecified; I27.20 Pulmonary hypertension, unspecified; I12.9 Hypertensive chronic kidney disease with stage 1 through stage 4 chronic kidney disease, or unspecified chronic kidney disease; E11.22 Type 2 diabetes mellitus with diabetic chronic kidney disease; E03.9 Hypothyroidism, unspecified; N18.2 Chronic kidney disease, stage 2 (mild); R11.0 Nausea; I71.4 Abdominal aortic aneurysm, without rupture; M10.30 Gout due to renal impairment, unspecified site; Z93.6 Other artificial openings of urinary tract status; Z79.84 Long term (current) use of oral hypoglycemic drugs; Z79.82 Long term (current) use of aspirin; Z79.899 Other long term (current) drug therapy; Z88.0 Allergy status to penicillin; Z88.8 Allergy status to other drugs, medicaments and biological substances; Z91.040 Latex allergy status; Z91.010 Allergy to peanuts; Z91.048 Other nonmedicinal substance allergy status

== ENCOUNTER → 2019-04-15 | Outpatient (CLI) | payer MEDICARE ==
[~2019-04-15] MED LIST changes: +ALLO100T PO; +CIPROFLOXACIN 500 MG TAB As Ordered ONE; +COLA100C5 PO; +ISOVUE-300 61% 50ML VIAL (Q9967) As Ordered ONE; +LIDOCAINE 1% MDV 20ML VIAL As Ordered ONE
[2019-04-15 14:30] VITALS: BP 142/64
--- NOTE | 2019-04-16 07:31 | REP ---
IR Nephrostomy catheter exchangeNephrostogram and Ureterogram.Clinical Information: Ureteral stricturePhysician[s]: Dr. Cardozarocedure: The patient was advised of the benefits, risks, and alternatives of the procedure and informed consent was obtained.A time out was performed with verification of the patient's name, MRN, site of procedure, and type of procedure to be performed. The patient was positioned in the decubitus position on the angiographic table. The site was prepped and draped in the usual sterile fashion.Moderate sedation was not required. The physician spent time 30 minutes of continuous [id number] time with the patient.A rnp radiograph reveals a right sided nephrostomy catheter in expected location.An initial nephrostogram and ureterogram were performed through the preexisting catheter, confirming the catheter pigtail position within the renal pelvis.The catheter was cut and an Amplatz wire was passed into the renal collecting system. The pre-existing nephrostomy catheter was removed over the wire. A new 8.5 [place] pigtail nephrostomy catheter was advanced into the renal collecting system. A final nephrostogram and ureterogram were performed confirming positioning of the pigtail within the renal pelvis with mild hydronephrosis. Ureterogram demonstrates no hydroureter. The ureter is patent to the urinary bladder.The catheter was sutured and a sterile dressing applied. The catheter was placed to gravity drainage.The patient tolerated the procedure well and was returned to the PRU in stable condition.EBL: < 5 mL.Complications: NoneConclusion:1. Nephrostogram and ureterogram demonstrate ureter patent to bladder.2. Successful right sided nephrostomy catheter exchange. Patient to return in 8-12 weeks for routine exchange. If the patient would be a suitable candidate for capping trial and ureteral stenting, please refer to IR. Thank you for this referral Electronically Signed by Aleshia Langston MD 04/15/2019 04:27 P
== END ==
LOC: EDBD 03-29 14:00 → M RADPRO 13:03 → M IRPRO 13:03
PROVIDERS: ATTEND Nurse Practitioner Family
DX: N13.30 Unspecified hydronephrosis (principal)

== ENCOUNTER → 2019-07-08 | Outpatient (CLI) | payer MEDICARE ==
[~2019-07-08] MED LIST changes: -CIPROFLOXACIN 500 MG TAB As Ordered ONE; +CIPROFLOXACIN/D5W 400 MG/200 ML BAG (J0744) As Ordered ONE; -DIPH25CA PO; +DIPH25CA32 PO; -FEBU40TA PO; +FEBU40TA4 PO; -METF750T PO; +METF750T36 PO; +MIDAZOLAM INJ 2 MG/2 ML VIAL (J2250) As Ordered ONE; +fentaNYL 100 MCG/2 ML INJECTION (J3010) As Ordered ONE
--- NOTE | 2019-07-08 15:31 | IRHP ---
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 last nephrostomy capping trial, patient ended up in renal failure. No fevers no chills no pain. O/E vitals stable. right nephrostomy draining clear urine. breathing normal at rest. heart rate normal. History of Present Illness Chief Complaint The patient is a 83-year-old female admitted with a reason for visit of Rt Hyd ronephrosis *$14 Co-Pay*. PRE-PROCEDURE DIAGNOSIS: obstructive uropathy ASA Classification ASA Classification: III-Severe systemic dis. Mallampati Score: I NPO: Yes Problems with prior sedation: No Obstructive Sleep Apnea: No Plan moderate sedation Allergies Coded Allergies: Penicillins (Unverified Allergy, Unknown, 02/12/19) latex (Verified Allergy, Unknown, 04/04/19) peanut oil (Verified Allergy, Unknown, 04/04/19) red dye (Verified Allergy, Unknown, 04/04/19) budesonide (Unverified Adverse Reaction, Intermediate, 02/12/19) NOTES AT PHARMACY STATE PATIENT HAD BAD SINUS REACTION AFTER USING formoterol (Unverified Adverse Reaction, Intermediate, 02/12/19) NOTES AT PHARMACY STATE PATIENT HAD BAD SINUS REACTION AFTER USING Home Medications Scheduled Allopurinol (Allopurinol), 100 MG PO DAILY, (Reported) Amlodipine Besylate (Amlodipine Besylate), 5 MG PO DAILY, (Reported) Aspirin (Aspir 81), 81 MG PO DAILY, (Reported) Atorvastatin Calcium (Atorvastatin Calcium), 20 MG PO DAILY, (Reported) Docusate Sodium (Colace), 200 MG PO BID Fluticasone/Vilanterol (Breo Ellipta 100-25 Mcg INH), 1 PUFF INH DAILY, ( Reported) Furosemide (Furosemide), 40 MG PO DAILY, (Reported) Glipizide (Glipizide ER), 10 MG PO DAILY, (Reported) Levothyroxine Sodium (Synthroid), 100 MCG PO DAILY, (Reported) Linagliptin (Tradjenta), 5 MG PO DAILY, (Reported) Lisinopril (Lisinopril), 20 MG PO DAILY, (Reported) Magnesium Oxide (Magnesium Oxide), 400 MG PO BID, (Reported) Metformin HCl (Metformin HCl ER), 750 MG PO QPM, (Reported) Metoprolol Succinate (Metoprolol Succinate), 25 MG PO DAILY, (Reported) Pantoprazole Sodium (Pantoprazole Sodium), 20 MG PO BID, (Reported) Paroxetine HCl (Paroxetine), 10 MG PO DAILY, (Reported) Potassium Chloride (Potassium Chloride), 40 MEQ PO BID, (Reported) Tiotropium [place] Monohydrate (Spiriva), 1 INHALATION INH DAILY, (Reported) Scheduled PRN Acetaminophen (Acetaminophen), 650 MG PO Q6H PRN for PAIN, (Reported) Albuterol Sulfate (Proair Hfa), 2 PUFF INH Q4-6 PRN for SHORTNESS OF BREATH, (Reported) Diphenhydramine HCl (Diphenhydramine HCl), 25 MG PO Q4H PRN for ALLERGY SYMPTOMS, (Reported) VS, I&O, 24H, Fishbone Vital Signs/I&O Vital Signs Date Time Temp Pulse Resp B/P (MAP) Pulse Ox O2 Delivery O2 Flow Rate FiO2 07/08/19 15:22 89 20 97 07/08/19 14:50 2 07/08/19 13:38 97.8 SUKHDEV DAHL MD Jul 08, 2019 15:31
--- NOTE | 2019-07-08 15:40 | REP ---
IR Nephrostomy catheter exchange. IR Nephrostogram and ureterogram. Clinical information: Obstructive right uropathy. Last capping trial patient went into renal failure. Physician: Dr. Langston. Procedure: The patient was advised of the benefits, risks and alternatives of the procedure and informed consent was obtained. The time-out was performed with verification of the patient's name, MRN, site of procedure and type of procedure to be performed. The patient was positioned in the prone position on the angiographic table. The site was prepped and draped in the usual sterile fashion. Moderate sedation was performed by the physician including the presence of an independent trained observer who assisted in monitoring the patient's level of consciousness and physiologic status. Following the administration of Versed and Fentanyl, the physician spent 30 minutes of continuous face to face time with the patient. A staff air defense officer radiograph reveals a right-sided nephrostomy catheter in expected location. An initial nephrostogram and ureterogram was performed through the preexisting catheter confirming pigtail positioned in the renal collecting system. Lidocaine was injected around the catheter exit site. The catheter and sutures were cut, an Amplatz wire was passed into the renal collecting system. The preexisting nephrostomy catheter was removed over the wire. A new 8 -Irish nephrostomy catheter was advanced in the renal collecting system. A final nephrostogram and ureterogram was performed confirming position of the pigtail in the renal pelvis with mild hydronephrosis. Ureterogram demonstrates the ureter is patent to the bladder. The catheter was secured in position with 2-0 Prolene and a sterile dressing was applied. The catheter was placed gravity drainage. The patient tolerated the procedure well and was returned to the P R U in stable condition. EBL: Less than 5 ml. Complications: None. Conclusion: 1. Nephrostogram and ureterogram demonstrate mild hydronephrosis. Ureter appears patent to the bladder. 2. Successful right nephrostomy catheter exchange. Patient to return in 8-12 weeks for routine catheter exchange. Thank you this referral. Electronically Signed by Aleshia Langston MD 07/08/2019 03:38 P
[2019-07-08 15:58] VITALS: BP 171/81
== END ==
LOC: M IRPRO 13:20
PROVIDERS: ATTEND Radiology Diagnostic Radiology
DX: N13.9 Obstructive and reflux uropathy, unspecified (principal); Z79.899 Other long term (current) drug therapy; Z79.82 Long term (current) use of aspirin
CPT/HCPCS: 50435; 99152; 99153; C1729; C1769; C1887; J0744; J2250; J3010; Q9967

== ENCOUNTER → 2019-10-03 | Outpatient (CLI) | payer MEDICARE ==
[~2019-10-03] MED LIST changes: +CIPROFLOXACIN 500 MG TAB As Ordered ONE; -CIPROFLOXACIN/D5W 400 MG/200 ML BAG (J0744) As Ordered ONE; -MIDAZOLAM INJ 2 MG/2 ML VIAL (J2250) As Ordered ONE; -fentaNYL 100 MCG/2 ML INJECTION (J3010) As Ordered ONE
[2019-10-03] MEDS: CIPROFLOXACIN 250 MG TAB PO ONE (15:39)
--- NOTE | 2019-10-03 16:33 | POST-OPPD ---
Postoperative Procedure Note Date Of Procedure: Oct 03, 2019 Time Of Procedure: 16:32 PREOPERATIVE DIAGNOSIS: ureteral obstruction POSTOPERATIVE DIAGNOSIS: same FINDINGS: same PROCEDURE: right side neph exchanged SURGEON: noble ANESTHESIA: local ESTIMATED BLOOD LOSS: < 5 ml COMPLICATIONS: none POSTOPERATIVE CONDITION: stable SUKHDEV DAHL MD Oct 03, 2019 16:33
[2019-10-03 17:15] VITALS: BP 194/86
--- NOTE | 2019-10-04 09:57 | REP ---
IR Nephrostomy catheter exchange. IR Nephrostogram and ureterogram. Clinical information: Ureteral obstruction. Physician: Dr. Langston. Procedure: The patient was advised of the benefits, risks and alternatives of the procedure and informed consent was obtained. The time-out was performed with verification of the patient's name, MRN, site of procedure and type of procedure to be performed. The patient was positioned in the prone position on the angiographic table. The site was prepped and draped in the usual sterile fashion. Moderate sedation was not performed. The physician spent 30 minutes of continuous face to face time with the patient. A corrections identification technician radiograph reveals a right-sided nephrostomy catheter in expected location. An initial nephrostogram and ureterogram was performed through the preexisting catheter confirming pigtail positioned in the renal collecting system. Lidocaine was injected around the catheter exit site. The catheter and sutures were cut, an Amplatz wire was passed into the renal collecting system. The preexisting nephrostomy catheter was removed over the wire. A new 8 -Danish nephrostomy catheter was advanced in the renal collecting system. A final nephrostogram and ureterogram was performed confirming position of the pigtail in the renal pelvis with mild hydronephrosis. Ureterogram demonstrates no flow past the uretero pelvic junction. The catheter was secured in position with 2-0 Prolene and a sterile dressing was applied. The catheter was placed gravity drainage. The patient tolerated the procedure well and was returned to the P R U in stable condition. EBL: Less than 5 ml. Complications: None. Conclusion: 1. Nephrostogram and ureterogram demonstrate UPJ obstruction 2. Successful right nephrostomy catheter exchange. Patient to return in 8-12 weeks for routine catheter exchange. Thank you this referral. Electronically Signed by Aleshia Langston MD 10/04/2019 09:55 A
== END ==
LOC: M IRPRO 13:32
PROVIDERS: ATTEND Radiology Diagnostic Radiology
DX: N13.1 Hydronephrosis with ureteral stricture, not elsewhere classified (principal)
CPT/HCPCS: 50435; C1729; C1769; Q9967

== ENCOUNTER → 2020-01-06 | Outpatient (CLI) | payer MEDICARE ==
[~2020-01-06] MED LIST changes: +BUSP5TA PO; +CARV6.25 PO; -CIPROFLOXACIN 500 MG TAB As Ordered ONE; +CIPROFLOXACIN 500MG TABLET As Ordered ONE; +CIPROFLOXACIN/D5W 400 MG/200 ML BAG (J0744) As Ordered ONE; +MIDAZOLAM INJ 2 MG/2 ML VIAL (J2250) As Ordered ONE; +VITA30004 PO; +VITA500079 PO; +diphenhydrAMINE 50MG/ML VIAL (J1200) As Ordered ONE; +fentaNYL 100 MCG/2 ML INJECTION (J3010) As Ordered ONE
--- NOTE | 2020-01-06 14:35 | REP ---
IR Nephrostomy catheter exchange. IR Nephrostogram and ureterogram. Clinical information: Ureteral stenosis. Bladder outlet issues. Physician: Dr. Langston. Procedure: The patient was advised of the benefits, risks and alternatives of the procedure and informed consent was obtained. The time-out was performed with verification of the patient's name, MRN, site of procedure and type of procedure to be performed. The patient was positioned in the prone position on the angiographic table. The site was prepped and draped in the usual sterile fashion. Moderate sedation was not required. The physician spent 30 minutes of continuous face to face time with the patient. A paint stripper radiograph reveals a right-sided nephrostomy catheter in expected location. Lidocaine was injected around the catheter exit site. The catheter and sutures were cut, an Amplatz wire was passed into the renal collecting system. The preexisting nephrostomy catheter was removed over the wire. A new 8.5 -Argent[place] nephrostomy catheter was advanced in the renal collecting system. A final nephrostogram and ureterogram was performed confirming position of the pigtail in the renal pelvis with mild hydronephrosis. Ureterogram demonstrates ureter is patent to bladder. The catheter was secured in position with 2-0 Prolene and a sterile dressing was applied. The catheter was placed gravity drainage. The patient tolerated the procedure well and was returned to the P R U in stable condition. EBL: Less than 5 ml. Complications: None. Conclusion: 1. Nephrostogram and ureterogram demonstrate ureter is patent to bladder. 2. Successful right nephrostomy catheter exchange. Patient to return in 12 weeks for routine catheter exchange. 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 No stenting planned. Continue follow up with urology. Thank you this referral. Electronically Signed by Aleshia Langston MD 01/06/2020 02:34 P
[2020-01-06 15:00] VITALS: BP 148/67
== END ==
LOC: M IRPRO 12:54
PROVIDERS: ATTEND Radiology Diagnostic Radiology
DX: N13.1 Hydronephrosis with ureteral stricture, not elsewhere classified (principal)

== ENCOUNTER → 2020-01-28 | Outpatient (POV) | payer MEDICARE ==
[~2020-01-28] MED LIST changes: -CIPROFLOXACIN 500MG TABLET As Ordered ONE; -CIPROFLOXACIN/D5W 400 MG/200 ML BAG (J0744) As Ordered ONE; -ISOVUE-300 61% 50ML VIAL (Q9967) As Ordered ONE; -LIDOCAINE 1% MDV 20ML VIAL As Ordered ONE; -MIDAZOLAM INJ 2 MG/2 ML VIAL (J2250) As Ordered ONE; -diphenhydrAMINE 50MG/ML VIAL (J1200) As Ordered ONE; -fentaNYL 100 MCG/2 ML INJECTION (J3010) As Ordered ONE
--- NOTE | 2020-01-29 15:31 | IRPN ---
[facility] IR Progress Note IR Progress Note DATE: Jan 28, 2020 FOLLOW-UP: Patient with chronic indwelling right nephrostomy catheter, catheter fell out last Monday. Patient reports she is urinating more now and getting up 3 times in the night to urinate. She drinks water right up to bedtime. No pain or burning with urination. No flank pain. No fevers or chills. ON EXAMINATION: No Video Imaging: I personally reviewed the last nephrostogram. The ureter is patent to the bladder. IMPRESSION: 84 female with chronic indwelling right nephrostomy catheter now without catheter. No fever or chills and patient is urinating well. Advised patient to not drink water after 6 pm at night and this will reduce the number of times she needs to get up in the night. Patient has incontinence pads. Given the nephrostogram shows the ureter is patent to the bladder, this is a good opportunity to re evaluate her without the nephrostomy, especially as she is able to urinate freely without pain or discomfort. I will follow her up in clinic in 1 month US kidney. Continue follow up with nephrology. Thank you for this referral Allergies Coded Allergies: Penicillins (Unverified Allergy, Unknown, 02/12/19) latex (Verified Allergy, Unknown, 04/04/19) peanut oil (Verified Allergy, Unknown, 04/04/19) red dye (Verified Allergy, Unknown, 04/04/19) budesonide (Unverified Adverse Reaction, Intermediate, 02/12/19) NOTES AT PHARMACY [facility] PATIENT HAD BAD SINUS REACTION AFTER USING formoterol (Unverified Adverse Reaction, Intermediate, 02/12/19) NOTES AT PHARMACY [facility] PATIENT HAD BAD SINUS REACTION AFTER USING SUKHDEV DAHL MD Jan 29, 2020 15:31
== END ==
LOC: M TMIRPOV 14:54
PROVIDERS: ATTEND Radiology Diagnostic Radiology
DX: Z46.6 Encounter for fitting and adjustment of urinary device (principal)

== ENCOUNTER → 2020-03-03 | Outpatient (POV) | payer MEDICARE ==
--- NOTE | 2020-03-04 12:00 | IRPN ---
[facility] IR Progress Note IR Progress Note DATE: Mar 03, 2020 Consent was given by the patient for this telephone call. Length of call was 5 minutes. FOLLOW-UP: Status post right nephrostomy fall out over a month ago. Ureter patent on prior ureterogram therefore trial without nephrostomy was initiated. Patient doing well. No pain, fevers or chills. Now reports urinating well with good stream and no discomfort. Imaging: I personally reviewed the renal ultrasound performed same day. Unremarkable kidneys with no hydronephrosis. Partially decompressed bladder IMPRESSION: Doing well without nephrostomy. No further intervention or follow up scheduled unless initiated by patient and or referring provider. Thank you for this referral cc [facility] All[facility] Coded Allergies: Penicillins (Unverified Allergy, Unknown, 02/12/19) latex (Verified Allergy, Unknown, 04/04/19) peanut oil (Verified Allergy, Unknown, 04/04/19) red dye (Verified Allergy, Unknown, 04/04/19) budesonide (Unverified Adverse Reaction, Intermediate, 02/12/19) NOTES AT [facility]ARM[facility]Y [facility] PATIENT HAD BAD SINUS REACTION AFTER USING formoterol (Unverified Adverse Reaction, Intermediate, 02/12/19) NOTES AT PHARM[facility]Y [facility] PATIENT HAD BAD SINUS REACTION AFTER USING SUKHDEV DAHL MD Mar 04, 2020 12:00
== END ==
LOC: M IRPOV 12:51
PROVIDERS: ATTEND Radiology Diagnostic Radiology
DX: N26.1 Atrophy of kidney (terminal) (principal); N35.92 Unspecified urethral stricture, female

== ENCOUNTER → 2020-03-03 | Outpatient (CLI) | payer MEDICARE ==
--- NOTE | 2020-03-03 15:05 | REP ---
RENAL ULTRASOUND: Real-time sonographic evaluation of the kidneys performed. Both kidneys are hyperechoic especially on the left suggesting medical renal disease. Left kidney is moderately atrophic. Right kidney measures 10.5 x 5.4 x 3.5 cm and left kidney 6.8 x 3.5 x 2.9 cm. There is no hydronephrosis bilaterally. No renal mass is seen. Urinary bladder is very mildly distended. IMPRESSION: Hyperechoic echotexture of the kidneys suggests medical renal disease. No hydronephrosis. Moderate left renal atrophy. Electronically Signed by David Alberts MD 03/04/2020 12:30 P
== END ==
LOC: M RAD 10:21
PROVIDERS: ATTEND Radiology Diagnostic Radiology
DX: N26.1 Atrophy of kidney (terminal) (principal); N35.92 Unspecified urethral stricture, female
CPT/HCPCS: 76775; G0463

== ENCOUNTER → 2021-07-27 | Outpatient (POV) | payer MEDICARE ==
[~2021-07-27] VITALS: Ht 154.9 cm; Wt 59.0 kg
[~2021-07-27] MED LIST changes: +ACET32TAB PO; +AMLO1TAB24 PO; -AMLO5TAB6 PO; -ASPI81TA85 PO; +ASPI81TA86 PO; -LISI-538 PO; +LISI20TA33 PO; -NON-325T5 PO; -PANT20TA2 PO; +PANT20TA6 PO
[2021-07-27 10:55] VITALS: BP 163/71
--- NOTE | 2021-07-29 12:43 | IRCOV ---
[facility] IR Consult Office Visit IR Consult Office Visit DATE: Jul 27, 2021 REASON FOR CONSULTATION/CHIEF COMPLAINT: Kidney stone. HISTORY OF PRESENT ILLNESS: 85-year-old female referred to me from urology. Patient previously had a chronic right nephrostomy catheter, which was routinely exchanged by my predecessor. I inherited the patient with an existing right nephrostomy catheter. However, repeat nephrostograms demonstrated the ureter to be patent to the bladder. The catheter fell out and we decided to go catheter free and see how she does. That was back in March 2020. Patient has been doing well. No fevers, chills or back pain. She was urinating normally via the bladder. Recently she was admitted to an outside hospital with right flank pain. She endorses fevers and chills at the time. Reportedly, she was then transferred to [place] where they saw a right ureteral stone. They proceeded with a right- sided nephrostomy placement. She is now referred to me from urology for nephrostogram ureterogram and/or nephrostomy removal. Patient denies any further right flank pain. She denies any fevers or chills. Currently the right nephrostomy is attached to a bag, draining clear yellow urine. Given that she has a solitary kidney, she is not urinating significantly from the bladder. She has had no further follow-up imaging at [facility], cystoscopy or ureteroscopy. ALLERGIES: Please see below. HOME MEDICATIONS: Please see below. PAST MEDICAL HISTORY: COPD Anemia CHF Diabetes GERD Hypertension High cholesterol Dementia Renal disease UTI Hypothyroidism Osteoporosis Pelvic fracture Wrist fracture PAST SURGICAL HISTORY: Right rotator cuff repair Right nephrostomy FAMILY HISTORY: Noncontributory. SOCIAL HISTORY: Non-smoker. Denies alcohol or drugs. REVIEW OF SYSTEMS: Otherwise negative. PHYSICAL EXAMINATION: VITAL SIGNS: Please see below. GENERAL APPEARANCE: Appears well. Comfortable at rest. HEENT: No scleral icterus. RESPIRATORY: Normal breathing at rest. CARDIOVASCULAR: Normal rate. ABDOMEN: Right nephrostomy in place. Skin soft nontender. NEUROLOGICAL: Alert and oriented. PSYCHIATRIC: Appropriate to circumstance. LABORATORY DATA: None recent. Imaging: [place] imaging not available. ASSESSMENT/PLAN: 85-year-old female recently admitted to [facility] with right flank pain, fevers and chills. Reportedly there was a ureteral stone. She had a right nephrostomy catheter placed. The catheter is now attached to a bag and draining urine. We will order a CT abdomen pelvis without contrast to evaluate for any remaining stone burden. We will then perform a nephrostogram and ureterogram to evaluate patency of the ureter to the bladder. If the ureter is patent to the bladder, w e will remove the nephrostomy catheter. If the ureter is occluded, we may attempt internal stenting and then refer back to urology for routine stent exchanges. We will also ask [place] for prior imaging. I spent 30 minutes reviewing patient's records and in consultation with the patient. Thank you for this referral. CC Dr. Roblero Allergies Coded Allergies: Penicillins (Unverified Allergy, Unknown, 02/12/19) latex (Verified Allergy, Unknown, 04/04/19) peanut oil (Verified Allergy, Unknown, 04/04/19) red dye (Verified Allergy, Unknown, 04/04/19) budesonide (Unverified Adverse Reaction, Intermediate, 02/12/19) NOTES AT PHARMACY STATE PATIENT HAD BAD SINUS REACTION AFTER USING formoterol (Unverified Adverse Reaction, Intermediate, 02/12/19) NOTES AT PHARMACY STATE PATIENT HAD BAD SINUS REACTION AFTER USING Home Medications Scheduled Allopurinol (Allopurinol), 100 MG PO DAILY, (Reported) Amlodipine Besylate (Amlodipine Besylate), 5 MG PO DAILY, (Reported) Aspirin (Aspir 81), 81 MG PO DAILY, (Reported) Atorvastatin Calcium (Atorvastatin Calcium), 20 MG PO DAILY, (Reported) Buspirone HCl (Buspirone HCl), 5 MG PO BID, (Reported) Carvedilol (Carvedilol), 12.5 MG PO BID, (Reported) Docusate Sodium (Colace), 200 MG PO BID Fluticasone/Vilanterol (Breo Ellipta 100-25 Mcg INH), 1 PUFF INH DAILY, (Reported) Glipizide (Glipizide ER), 10 MG PO DAILY, (Reported) Levothyroxine Sodium (Synthroid), 100 MCG PO DAILY, (Reported) Lisinopril (Lisinopril), 20 MG PO DAILY, (Reported) Magnesium Oxide (Magnesium Oxide), 400 MG PO BID, (Reported) Pantoprazole Sodium (Pantoprazole Sodium), 20 MG PO BID, (Reported) Tiotropium [place] Monohydrate (Spiriva), 1 INHALATION INH DAILY, (Reported) Scheduled PRN Acetaminophen (Acetaminophen), 650 MG PO Q6H PRN for PAIN, (Reported) Albuterol Sulfate (Proair Hfa), 2 PUFF INH Q4-6 PRN for SHORTNESS OF BREATH, (Reported) Diphenhydramine HCl (Diphenhydramine HCl), 25 MG PO Q4H PRN for ALLERGY SYMPTOMS, (Reported) Miscellaneous Medications Cholecalciferol (Vitamin D3) (Vitamin D3), 3,000 UNIT PO, (Reported) VS, I&O, 24H, Fishbone Vital Signs/I&O Vital Signs Date Time Temp Pulse Resp B/P (MAP) Pulse Ox O2 Delivery O2 Flow Rate FiO2 07/27/21 10:55 97.0 69 20 163/71 (101) 95 Room Air SUKHDEV DAHL MD Jul 29, 2021 12:43
== END ==
LOC: M IRPOV 10:45
PROVIDERS: ATTEND Radiology Diagnostic Radiology
DX: N20.1 Calculus of ureter (principal); Z79.82 Long term (current) use of aspirin; Z79.890 Hormone replacement therapy; Z79.899 Other long term (current) drug therapy; Z88.0 Allergy status to penicillin; Z91.018 Allergy to other foods; Z91.040 Latex allergy status; Z91.09 Other allergy status, other than to drugs and biological substances; Z96.0 Presence of urogenital implants

== ENCOUNTER → 2021-08-03 | Outpatient (CLI) | payer MEDICARE ==
--- NOTE | 2021-08-03 17:40 | REP ---
INDICATION: KIDNEY STONE. COMPARISON: 01/10/2019 TECHNIQUE: Noncontrast scanning through the abdomen pelvis with coronal and sagittal reconstructions. FINDINGS: CT abdomen. Lung bases show no effusion or acute infiltrate. There is some eventration of the left diaphragm which is elevated posteriorly. Small hiatal hernia noted. There is some compressive atelectatic change above the elevated left diaphragm. Some inferior lingular segment fibrotic change anteriorly noted. A densely calcified granuloma in the medial basal segment of the right lower lobe again seen. The heart size unchanged with some left atrial and ventricular enlargement. No pericardial thickening or effusion. Heavily calcified mitral annulus with some calcifications at the aortic root and descending aorta. Previous effusions revolved. Liver is lobulated in its contour has an enlarged left hepatic lobe consistent with chronic liver disease. No splenomegaly. No focal hepatic mass or biliary dilatation. No upper abdominal ascites. Gallbladder with some calcified stones. Colon shows scattered diverticula the throughout without signs of colitis or diverticulitis. Many of them contain oral contrast from previous ingestion no colitis or diverticulitis, stricture or mass. Small bowel loops fluid-filled without dilatation or air-fluid levels. No inflammatory changes in the mesentery. Small periaortic nodes present but not of pathologic size. I do not see other retroperitoneal or mesenteric pathologic sized nodes. Pancreas grossly intact. Adrenal glands are normal. There is severe atrophy of the left kidney as before with sinus lipomatosis and marked cortical thinning, decreased overall length. The right kidney shows an indwelling percutaneous stent coiled in the renal pelvis. This is similar to the previous study. Hypodensity medially in the upper pole may reflect cortical cyst. I do not see ureteral dilatation or stone on either side. Lung window review of all CT slices in the abdomen and pelvis shows no perforation or free air. See no evidence for an abscess. Bone windows show the bones demineralized but without compression deformity in the lower thoracic or lumbar spine. There is facet arthropathy and some degenerative disc disease greatest at L5-S1. Visualized ribs grossly intact. CT pelvis: SI joints with slight narrowing and some sclerotic change iliac greater than sacral margins without sacral fracture or focal lesion. There is advanced arthritis with [id number] appearance of the femoral heads centrally and superiorly prominent rim osteophyte its right greater than left femoral head and marginal osteophytes acetabulum. Subchondral cysts in the acetabular roof. Some old posttraumatic change with healing of the right superior pubic ramus at the symphysis pubis left pubic rami unremarkable distal of left colon sigmoid with diverticulosis but no diverticulitis heavy atherosclerotic calcifications in iliac vessels bilaterally. No iliac aneurysm. Uterus not enlarged and is anteverted. No pelvic or adnexal mass. No pelvic free fluid. There is no ventral or inguinal hernia. IMPRESSION: 1. Severe atrophy left kidney and indwelling percutaneous renal stent on the right without significant hydronephrosis and no stone or visible mass there is compensatory hypertrophy of the right kidney. 2. Diverticulosis the without diverticulitis, colitis, stricture or mass. 3. Infrarenal abdominal aortic aneurysm currently 4.1 x 4.2 cm previously 4 by 3.9 cm 01/18. 4. Chronic liver disease with lobulated hepatic contour and prominent left hepatic lobe consistent with cirrhosis.. Some old granulomatous disease in the spleen which is not enlarged. No ascites. No new or acute finding. <Electronically signed by Prieto Cook > 08/03/21 [id number]
== END ==
LOC: M RAD 14:53
PROVIDERS: ATTEND Radiology Diagnostic Radiology
DX: N20.0 Calculus of kidney (principal)

== ENCOUNTER → 2021-08-16 | Outpatient (CLI) | payer MEDICARE ==
[~2021-08-16] MED LIST changes: +ISOVUE-300 61% 50ML VIAL As Ordered ONE; +JANU100T PO
[2021-08-16 14:46] VITALS: BP 190/82
--- NOTE | 2021-08-19 15:54 | IRPON ---
IR Postoperative Note Date Of Procedure: Aug 16, 2021 Time Of Procedure: 16:00 IR Postoperative Note IR nephrostogram and ureterogram. Clinical indication: Right nephrostomy placed at outside hospital for obstructing stone. Dog Walker radiograph demonstrates right nephrostomy catheter. The nephrostomy catheter was accessed in a sterile manner and injected with contrast. This demonstrates patent ureter to the bladder. No obstruction. Impression: Nephrostogram and ureterogram demonstrates patent right ureter to the bladder. CT abdomen pelvis demonstrates no ureteral stone. The right nephrostomy catheter was capped. If patient tolerates nephrostomy capping trial, the nephrostomy catheter will be removed. CC SUKHDEV Sandra MD Aug 19, 2021 15:54
== END ==
LOC: M IRPRO 12:47
PROVIDERS: ATTEND Radiology Diagnostic Radiology
DX: N20.0 Calculus of kidney (principal); Z88.0 Allergy status to penicillin; Z88.8 Allergy status to other drugs, medicaments and biological substances; Z91.018 Allergy to other foods; Z91.040 Latex allergy status; Z93.6 Other artificial openings of urinary tract status
CPT/HCPCS: 50431; Q9967

== ENCOUNTER → 2021-09-07 | Outpatient (POV) | payer MEDICARE ==
[~2021-09-07] VITALS: Ht 152.4 cm; Wt 63.6 kg
[~2021-09-07] MED LIST changes: -ISOVUE-300 61% 50ML VIAL As Ordered ONE
[2021-09-07 14:15] VITALS: BP 168/70
--- NOTE | 2021-09-09 14:41 | IRPN ---
[facility] IR Progress Note IR Progress Note DATE: Sep 07, 2021 FOLLOW-UP: Patient with right-sided nephrostomy catheter placed at outside hospital, reportedly for obstructing stone. CT demonstrates no obstructing stone in the ureter. Nephrostogram and ureterogram demonstrate the right kidney is patent to the bladder. The nephrostomy catheter has been capped for greater than 2 weeks. No fevers, chills or back pain. Patient is urinating normally. ON EXAMINATION: Right nephrostomy catheter in place. The nephrostomy catheter was cut and removed in its entirety. A sterile dressing was applied to the site. IMPRESSION: 85-year-old female with right-sided nephrostomy catheter, placed at outside hospital, reportedly for obstructing stone. CT since that time and nephrostogram and ureterogram demonstrate no obstructing stones. The kidney and ureter are patent to the bladder. Patient has passed a nephrostomy capping trial, for the past 2 weeks, with no fevers, chills or flank pain. She is urinating normally. The nephrostomy catheter was removed. If patient has recurrent ureteral obstruction or new stone, patient should be referred to urology for internal ureteral stenting. Thank you for this referral. CC Dr. Roblero Allergies Coded Allergies: Penicillins (Unverified Allergy, Unknown, 02/12/19) latex (Verified Allergy, Unknown, 04/04/19) peanut oil (Verified Allergy, Unknown, 04/04/19) red dye (Verified Allergy, Unknown, 04/04/19) budesonide (Unverified Adverse Reaction, Intermediate, 02/12/19) NOTES AT PHARMACY STATE PATIENT HAD BAD SINUS REACTION AFTER USING formoterol (Unverified Adverse Reaction, Intermediate, 02/12/19) NOTES AT PHARMACY STATE PATIENT HAD BAD SINUS REACTION AFTER USING VS,Fishbone, I+O VS, Fishbone, I+O Vital Signs Date Time Temp Pulse Resp B/P (MAP) Pulse Ox O2 Delivery O2 Flow Rate FiO2 09/07/21 14:15 98.6 82 20 168/70 (102) 97 Room Air SUKHDEV DAHL MD Sep 09, 2021 14:40
== END ==
LOC: M IRPOV 13:50
PROVIDERS: ATTEND Radiology Diagnostic Radiology
DX: Z43.6 Encounter for attention to other artificial openings of urinary tract (principal); Z88.0 Allergy status to penicillin; Z88.8 Allergy status to other drugs, medicaments and biological substances; Z91.018 Allergy to other foods; Z91.040 Latex allergy status; Z91.09 Other allergy status, other than to drugs and biological substances